=== PATIENT | male | born 1945 | race Caucasian/White ===

== ENCOUNTER 2016-04-13 19:36 | Emergency (ER) | payer MEDICARE ==
[~2016-04-13] VITALS: Ht 170.2 cm; Wt 109.4 kg
[~2016-04-13 19:36] MED LIST: COZA50TA PO; HYDR-2768 PO; METO100T9 PO; NITR.4 SL; PLAV75TA PO; PROT40TA PO; RANO500 PO; ROSU20 PO; ST J81CH PO
[2016-04-13 19:47] VITALS: BP 164/106; PULSE 130; RESP 18; TEMP 98; O2SAT 98
[2016-04-13] MEDS ORDERED: METF500T PO (19:55)
[2016-04-13] MEDS ORDERED: LOSA50TA2 PO (19:55)
[2016-04-13] MEDS ORDERED: VERA40TA PO (19:55)
[2016-04-13] MEDS ORDERED: XARE20TA PO (19:55)
[2016-04-13] MEDS ORDERED: ASPI81CH37 CHEW (19:55)
[2016-04-13] MEDS ORDERED: METO100T9 PO (19:55)
[2016-04-13] MEDS ORDERED: ROSU1TAB8 PO (19:55)
[2016-04-13] MEDS ORDERED: NITROGLYCERIN 0.4 MG SL 25 TABS/BTL SL SCH (20:00)
--- NOTE | 2016-04-13 20:06 | PD ---
HPI Chief Complaint: Chest Pain Time Seen by Provider: 20:00 Travel History International Travel<30 days: No Contact w/Intl Traveler<30days: No Traveled to known affect area: No History of Present Illness HPI The patient is a 70-year-old male that complains of chest pressure in the mid substernal area since 1300 today. The patient has a history of atrial fibrillation and ran out of his metoprolol yesterday, his last dose was yesterday morning. He has had chest pain when his heart rate is elevated in the past. He has had stents placed in 2011. He denies any syncopal or near syncopal spells. He denies any shortness of breath. PFSH Past Medical History Blood Disorders: No Heart Rhythm Problems: Yes Cancer: No Cardiovascular Problems: Yes High Cholesterol: Yes Chest Pain: Yes Diabetes: No Patient Takes Glucophage: Yes Endocrine: No Gastrointestinal Disorders: No Glaucoma: No Genitourinary: No Hepatitis: No Hiatal Hernia: No Hypertension: Yes Immune Disorder: No Implanted Vascular Access Dvce: No Musculoskeletal: No Neurologic: No Psychiatric: No Reproductive: No Respiratory: Yes Integumentary: No Sleep Apnea: Yes Thyroid Disease: No Influenza Vaccination: No ?: Not Past Surgical History Coronary Stent: Yes Thoracic Surgery: No Other Surgery: No Social History Alcohol Use: Yes (SOCIALLY) Tobacco Use: No Substance Use: No Allergies-Medications (Allergen,Severity, Reaction): Coded Allergies: No Known Allergies (Verified , 03/15/12) Reported Meds & Prescriptions Reported Meds & Active Scripts Active Reported Losartan-Hydrochlorothiazide 50-12.5 Mg Tab 1 Tab PO DAILY Rosuvastatin (Rosuvastatin Calcium) 20 Mg Tab 20 Mg PO DAILY Metoprolol Succinate ER 24 HR (Metoprolol Succinate) 100 Mg Tab 200 Mg PO DAILY Xarelto (Rivaroxaban) 20 Mg Tab 20 Mg PO DAILY Metformin (Metformin HCl) 500 Mg Tab 500 Mg PO DAILY With a meal Aspirin Low Dose (Aspirin) 81 Mg Chew 81 Mg CHEW DAILY Verapamil (Verapamil HCl) 40 Mg Tab 40 Mg PO BID Review of Systems Except as stated in HPI: all other systems reviewed are Neg Physical Exam Narrative GENERAL: The patient is alert, oriented 3 and slight apparent distress with his chest discomfort. His vital signs show blood pressure 164/1/06 with a heart rate of 130 and irregular but otherwise normal. SKIN: Warm and dry. HEAD: Atraumatic. Normocephalic. EYES: Pupils equal and round. No scleral icterus. No injection or drainage. ENT: No nasal bleeding or discharge. Mucous membranes pink and moist. NECK: Trachea midline. No JVD. CARDIOVASCULAR: Regular rate and rhythm. 2/6 systolic murmur appreciated patient apparently the patient does have a pre-existing heart murmur. RESPIRATORY: No accessory muscle use. Clear to auscultation. Breath sounds equal bilaterally. GASTROINTESTINAL: Abdomen soft, non-tender, nondistended. Hepatic and splenic margins not palpable. MUSCULOSKELETAL: No obvious deformities. No clubbing. No cyanosis. No edema. NEUROLOGICAL: Awake and alert. No obvious cranial nerve deficits. Motor grossly within normal limits. Normal speech. PSYCHIATRIC: Appropriate mood and affect; insight and judgment normal. Data Data Last Documented VS Vital Signs Date Time Temp Pulse Resp B/P Pulse Ox O2 Delivery O2 Flow Rate FiO2 04/13/16 20:49 18 97 Room Air 04/13/16 20:35 87 140/81 04/13/16 19:47 98.0 Orders Nitroglycerin Sl (Nitrostat Sl) (04/13/16 20:00) Metoprolol Tartrate Inj (Lopressor Inj) (04/13/16 20:00) Electrocardiogram (04/13/16 20:06) B-Type Natriuretic Peptide (04/13/16 20:06) Ckmb (Isoenzyme) Profile (04/13/16 20:06) Complete Blood Count With Diff (04/13/16 20:06) Comprehensive Metabolic Panel (04/13/16 20:06) Magnesium (Mg) (04/13/16 20:06) Prothrombin Time / Inr (Pt) (04/13/16 20:06) Act Partial Throm Time (Ptt) (04/13/16 20:06) Troponin I (04/13/16 20:06) Ecg Monitoring (04/13/16 20:06) Iv Access Insert/Monitor (04/13/16 20:06) Oximetry (04/13/16 20:06) Oxygen Administration (04/13/16 20:06) Sodium Chloride 0.9% Flush (Ns Flush) (04/13/16 20:15) Chest, Pa & Lat (04/13/16 20:06) Metoprolol Tartrate (Lopressor) (04/13/16 21:00) Labs Laboratory Tests Test 04/13/16 19:45 White Blood Count 8.5 TH/MM3 Red Blood Count 5.11 MIL/MM3 Hemoglobin 15.7 GM/DL Hematocrit 45.4 % Mean Corpuscular Volume 88.8 FL Mean Corpuscular Hemoglobin 30.8 PG Mean Corpuscular Hemoglobin 34.7 % Concent Red Cell Distribution Width 12.8 % Platelet Count 188 TH/MM3 Mean Platelet Volume 8.6 FL Neutrophils (%) (Auto) 59.5 % Lymphocytes (%) (Auto) 30.9 % Monocytes (%) (Auto) 5.9 % Eosinophils (%) (Auto) 3.1 % Basophils (%) (Auto) 0.6 % Neutrophils # (Auto) 5.0 TH/MM3 Lymphocytes # (Auto) 2.6 TH/MM3 Monocytes # (Auto) 0.5 TH/MM3 Eosinophils # (Auto) 0.3 TH/MM3 Basophils # (Auto) 0.1 TH/MM3 CBC Comment DIFF FINAL Differential Comment Prothrombin Time 13.0 SEC Prothromb Time International 1.2 RATIO Ratio Activated Partial 36.6 SEC Thromboplast Time Sodium Level 140 MEQ/L Potassium Level 3.4 MEQ/L Chloride Level 102 MEQ/L Carbon Dioxide Level 28.8 MEQ/L Anion Gap 9 MEQ/L Blood Urea Nitrogen 13 MG/DL Creatinine 1.00 MG/DL Estimat Glomerular Filtration 74 ML/MIN Rate Random Glucose 218 MG/DL Calcium Level 8.8 MG/DL Magnesium Level 2.2 MG/DL Total Bilirubin 0.7 MG/DL Aspartate Amino Transf 14 U/L (AST/SGOT) Alanine Aminotransferase 25 U/L (ALT/SGPT) Alkaline Phosphatase 96 U/L Total Creatine Kinase 87 U/L Troponin I LESS THAN 0.02 NG/ML B-Type Natriuretic Peptide 271 PG/ML Total Protein 7.5 GM/DL Albumin 3.8 GM/DL [facility] Medical Decision Making Medical Screen Exam Complete: Yes Emergency Medical Condition: Yes Medical Record Reviewed: Yes Interpretation(s) The complete metabolic profile shows a potassium of 3.4, glucose of 218 but is otherwise unremarkable. The Cardec enzymes are normal. The BNP is 271. The CBC is normal and the ProTime is 13.0 with an INR of 1.2 and a PTT of 36.6. The chest x-ray shows no acute disease. Differential Diagnosis Pneumonia, pneumothorax, acute coronary syndrome, noncompliance to medication, anemia, electrolyte disorder, renal insufficiency, congestive heart failure Narrative Course The patient has noncompliance to medication and that he ran out of his metoprolol. His heart rate, after IV metoprolol and blood pressure after IV metoprolol are both normal now. He has no chest pain now. It appears that Diagnosis Primary Impression: Noncompliance with medications Additional Impression: Atrial fibrillation with rapid ventricular response Additional Instructions: We gave you the metoprolol for tomorrow morning, take the 200 mg then. Follow- up with your patient services rep, hopefully next week. It appears that missing the metoprolol for a day and a half allowed the tachycardia to reappear and the symptoms to appear. Med/Other Pt SpecificInfo: No Change to Meds Disposition: 01 DISCHARGE HOME Condition: Stable Speedy Dale MD Apr 13, 2016 20:06
[2016-04-13] MEDS: METOPROLOL TARTRATE 5 MG/5 ML VIAL IVS SCH ×3 (20:13→20:32)
[2016-04-13] MEDS ORDERED: SODIUM CHLORIDE 0.9% FLUSH 5 ML FLUSH IVF PRN (20:15)
[2016-04-13 20:18] VITALS: BP 135/81; PULSE 104; RESP 18; O2SAT 97
[2016-04-13 20:18] LABS: BASOPHIL # 0.1 TH/MM3 (0-0.2); BASOPHIL % 0.6 % (0.0-2.0); EOSINOPHIL # 0.3 TH/MM3 (0-0.4); EOSINOPHIL % 3.1 % (0.0-4.0); HEMATOCRIT 45.4 % (39.0-51.0); HEMO FLAGS DIFF FINAL; LYMPH % 30.9 % (9.0-44.0); LYMPHOCYTE # 2.6 TH/MM3 (1.0-4.8); MEAN CELL VOLUME 88.8 FL (80.0-100.0); MEAN CORPUSCULAR HEMOGLOBIN 30.8 PG (27.0-34.0); MEAN CORPUSCULAR HGB CONC 34.7 % (32.0-36.0); MONO % 5.9 % (0.0-8.0); NEUT % 59.5 % (16.0-70.0); PLATELET COUNT 188 TH/MM3 (150-450); RED BLOOD COUNT 5.11 MIL/MM3 (4.50-5.90); RED CELL DISTRIBUTION WIDTH 12.8 % (11.6-17.2); WHITE BLOOD COUNT 8.5 TH/MM3 (4.0-11.0)
[2016-04-13 20:25] LABS: CHLORIDE 102 MEQ/L (98-107); POTASSIUM 3.4 MEQ/L (3.5-5.1); SODIUM (NA) 140 MEQ/L (136-145)
[2016-04-13 20:28] VITALS: BP 155/92; PULSE 90; RESP 18; O2SAT 97
[2016-04-13 20:28] LABS: ANION GAP 9 MEQ/L (5-15); APTT (PATIENT) 36.6 SEC (24.3-30.1); BICARBONATE 28.8 MEQ/L (21.0-32.0); BLOOD UREA NITROGEN 13 MG/DL (7-18); INTERNATIONAL NORMALIZED RATIO 1.2 RATIO; MAGNESIUM 2.2 MG/DL (1.5-2.5)
[2016-04-13 20:31] LABS: ALT (GPT) 25 U/L (12-78); AST (GOT) 14 U/L (15-37); GLOMERULAR FILTRATION RATE 74 ML/MIN (>89)
[2016-04-13 20:33] LABS: TOTAL BILIRUBIN ADULT 0.7 MG/DL (0.2-1.0)
[2016-04-13 20:34] LABS: ALKALINE PHOSPHATASE 96 U/L (45-117)
[2016-04-13 20:35] VITALS: BP 140/81; PULSE 87; RESP 18; O2SAT 97
[2016-04-13 20:44] LABS: CREATINE KINASE 87 U/L (39-308)
[2016-04-13 20:49] VITALS: RESP 18; O2SAT 97
[2016-04-13] MEDS ORDERED: METOPROLOL TARTRATE 100 MG TAB PO ONE (21:00)
--- NOTE | 2016-04-13 21:04 | RADHPO ---
EXAM DATE/TIME: 04/13/2016 20:45 [facility] COMPARISON: No previous studies available for comparison. INDICATIONS : Chest pain/tightness. MEDICAL HISTORY : A-fib. SURGICAL HISTORY : Cardiac stent. ENCOUNTER: Initial ACUITY: 2 days PAIN SCORE: 2/10 LOCATION: chest FINDINGS: PA and lateral views of the chest demonstrate the lungs to be symmetrically aerated without evidence of mass, infiltrate or effusion. The cardiomediastinal contours are unremarkable. Osseous structure s are intact. CONCLUSION: No acute disease. Lavon Bullock MD on April 13, 2016 at 21:03 Board Certified Radiologist. This report was verified electronically.
[2016-04-13 21:24] VITALS: BP 142/78
--- NOTE | 2016-04-14 05:27 | EKG ---
Date Performed: 04/13/2016 Time Performed: 19:43:38 PTAGE: 70 years EKG: Atrial fibrillation with rapid ventricular response with PVC(s) or aberrant ventricular con duction. Possible anteroseptal infarct - age undetermined Nonspecific ST-T wave changes Abnormal ECG COMPARED TO PRIOR ELECTROCARDIOGRAM, Rapid atrial fibrillation has replaced Sinus rhythm . PREVIOUS TRACING : 11/25/2014 13.24 DOCTOR: Bernard Concepcion Interpretating Date/Time 04/14/2016 05:25:53
== END 2016-04-13 21:26 | disposition home or self-care (01) ==
LOC: PHEFT 19:36
DX: I48.91 Unspecified atrial fibrillation (principal); Z91.14 Patient's other noncompliance with medication regimen; E78.00 Pure hypercholesterolemia, unspecified; I10 Essential (primary) hypertension; G47.30 Sleep apnea, unspecified; I49.3 Ventricular premature depolarization; R94.31 Abnormal electrocardiogram [ECG] [EKG]; Z79.01 Long term (current) use of anticoagulants
CPT/HCPCS: 71020; 80053; 82550; 83735; 83880; 84484; 85025; 85610; 85730; 93005; 96374